=== PATIENT | female | born 1995 | race Caucasian/White ===

== ENCOUNTER 2021-12-23 12:38 | Inpatient (IN) | payer MEDICAID ==
[~2021-12-23] VITALS: Ht 160 cm; Wt 64.4 kg
[2021-12-23] MEDS ORDERED: TERBUTALINE SULFATE 1 MG/ML VIAL SUBCUT ONE (14:15)
[2021-12-23] MEDS ORDERED: LR 1,000 ML IV ONE (14:15)
[2021-12-23] MEDS ORDERED: DINOPROSTONE 10 MG SUPP VG ONE (14:15)
[2021-12-23 14:52] LABS: BASOPHILS % (AUTO) 0.3 % (0.0-2.0); EOSINOPHILS % (AUTO) 0.5 % (0.0-4.0); HEMATOCRIT 29.4 % (36-48); HEMOGLOBIN 9.7 g/dL (12.0-16.0); LYMPHOCYTES # (AUTO) 0.6 K/uL (1.0-5.5); LYMPHOCYTES % (AUTO) 9.9 % (20.5-51.5); MEAN CORPUSCULAR HEMOGLOBIN 25 pg (27-31); MEAN CORPUSCULAR HGB CONC 33 % (32-36); MEAN CORPUSCULAR VOLUME 77 fL (79.0-98.0); MONOCYTES # (AUTO) 0.5 K/uL (0.0-1.0); MONOCYTES % (AUTO) 8.6 % (1.7-9.3); NEUTROPHILS # (AUTO) 5.1 K/uL (1.8-7.7); NEUTROPHILS % (AUTO) 80.7 % (40.0-70.0); PLATELET COUNT (AUTO) 149 K/uL (130-430); RED BLOOD CELL COUNT(AUTO) 3.85 MIL/uL (4.2-6.2); RED CELL DISTRIBUTION WIDTH 16.5 % (9.0-15.0); WHITE BLOOD COUNT (AUTO) 6.3 K/uL (4.8-10.8)
[2021-12-23] MEDS: LR 1,000 ML IV SCH ×2 (18:03→21:10)
[2021-12-24] MEDS ORDERED: MORPHINE SULFATE 10 MG/ML VIAL IVP PRN (01:15)
[2021-12-24] MEDS ORDERED: NALOXONE HCL 0.4 MG/ML AMP (NARCAN) IVP PRN (01:15)
[2021-12-24] MEDS ORDERED: MORPHINE SULFATE 10 MG/ML VIAL ONE (01:40)
[2021-12-24] MEDS: LR 1,000 ML IV SCH (05:17)
[2021-12-24] MEDS ORDERED: TERBUTALINE SULFATE 1 MG/ML VIAL SUBCUT ONE (08:00)
[2021-12-24] MEDS ORDERED: OXYTOCIN/0.9 % SODIUM CHLORIDE 1,000 ML IV SCH ×2 (08:00→16:30)
[2021-12-24] MEDS ORDERED: fentaNYL CITRATE/PF 100 MCG/2 ML AMP ONE (08:01)
[2021-12-24] MEDS ORDERED: ROPIVACAINE HCL/PF 0.2% 200 ML ONE (08:01)
[2021-12-24] MEDS ORDERED: LR 500 ML IV ONE (09:15)
[2021-12-24] MEDS ORDERED: FENT2mCg/mL-ROPIVA0.2%/NS EPID 200 ML EP SCH (09:15)
[2021-12-24] MEDS ORDERED: LIDOCAINE PF 1% 30ML(POUR BTL) INJ ONE (12:16)
[2021-12-24] MEDS ORDERED: LIGHT MINERAL OIL 10 ML VIAL MC ONE (12:16)
[2021-12-24] MEDS ORDERED: NALOXONE HCL 0.4 MG/ML AMP (NARCAN) ONE (12:16)
[2021-12-24] MEDS ORDERED: METHYLERGONOVINE MALEATE 0.2 MG TABLET PO PRN (16:30)
[2021-12-24] MEDS ORDERED: HYDROCORTISONE 0.5% CREAM 28.4 GM CREAM.GM. TP PRN (16:30)
[2021-12-24] MEDS ORDERED: RHO(D) IMMUNE GLOBULIN/MALTOSE 1500 UNITS/1.3 ML (WINHRO) IM PRN (16:30)
[2021-12-24] MEDS ORDERED: DERMOPLAST SPRAY TP PRN (16:30)
[2021-12-24] MEDS ORDERED: WITCH HAZEL LEAF 1 MED.PAD MED.PAD TP PRN (16:30)
[2021-12-24] MEDS ORDERED: OXYTOCIN/0.9 % SODIUM CHLORIDE 1,000 ML IV ONE (16:30)
[2021-12-24] MEDS ORDERED: OXYCODONE/ACETAMINOPHEN 5-325 TABLET PO PRN (16:30)
[2021-12-24] MEDS ORDERED: ANUSOL 1 EA SUPP.RECT (PREPARATION H) RC PRN (16:30)
[2021-12-24] MEDS ORDERED: LANOLIN 7 GM OINT. TP PRN (16:30)
[2021-12-24] MEDS ORDERED: DIPH-TET-PERTUS Vaccine 0.5 ML VIAL (ADACEL) I.M. PRN (16:30)
[2021-12-24] MEDS ORDERED: DOCUSATE SODIUM 100 MG CAPSULE PO ONE (16:45)
[2021-12-24] MEDS: IBUPROFEN 600 MG TABLET PO SCH (18:02)
[2021-12-24] MEDS: OXYCODONE/ACETAMINOPHEN 5-325 TABLET PO PRN (20:56)
[2021-12-24] MEDS ORDERED: SENNOSIDES/DOCUSATE SODIUM 1 TAB TABLET(SENOKOT-S) PO SCH (21:00)
[2021-12-24] MEDS ORDERED: TEMAZEPAM 15 MG CAPSULE PO PRN (21:00)
[2021-12-24] MEDS ORDERED: DOCUSATE SODIUM 100 MG CAPSULE PO SCH (21:00)
[2021-12-25] MEDS: OXYCODONE/ACETAMINOPHEN 5-325 TABLET PO PRN (08:18)
[2021-12-25 08:23] LABS: BASOPHILS % (AUTO) 0.2 % (0.0-2.0); EOSINOPHILS % (AUTO) 0.5 % (0.0-4.0); HEMATOCRIT 26.1 % (36-48); HEMOGLOBIN 8.5 g/dL (12.0-16.0); LYMPHOCYTES # (AUTO) 0.7 K/uL (1.0-5.5); LYMPHOCYTES % (AUTO) 7.1 % (20.5-51.5); MEAN CORPUSCULAR HEMOGLOBIN 25 pg (27-31); MEAN CORPUSCULAR HGB CONC 33 % (32-36); MEAN CORPUSCULAR VOLUME 78 fL (79.0-98.0); MONOCYTES # (AUTO) 0.6 K/uL (0.0-1.0); MONOCYTES % (AUTO) 6.4 % (1.7-9.3); NEUTROPHILS # (AUTO) 8.1 K/uL (1.8-7.7); NEUTROPHILS % (AUTO) 85.8 % (40.0-70.0); PLATELET COUNT (AUTO) 131 K/uL (130-430); RED BLOOD CELL COUNT(AUTO) 3.36 MIL/uL (4.2-6.2); RED CELL DISTRIBUTION WIDTH 16.8 % (9.0-15.0); WHITE BLOOD COUNT (AUTO) 9.4 K/uL (4.8-10.8)
[2021-12-25] MEDS: IBUPROFEN 600 MG TABLET PO SCH ×2 (11:55→17:52)
[2021-12-25] MEDS ORDERED: FERROUS SULFATE 325 MG TABLET.DR PO SCH (21:00)
[2021-12-26] MEDS: IBUPROFEN 600 MG TABLET PO SCH ×2 (00:01→05:54)
== END 2021-12-26 14:54 | disposition home or self-care (01) | DRG 560 ==
LOC: SPU 12:38
PROVIDERS: ADMIT Obstetrics & Gynecology; ATTEND Obstetrics & Gynecology
PROC: 3E0P7VZ Introduction of Hormone into Female Reproductive, Via Natural or Artificial Opening (ICD-10-PCS; 2021-12-23)
PROC: 10E0XZZ Delivery of Products of Conception, External Approach (ICD-10-PCS; principal; 2021-12-24)
PROC: 10907ZC Drainage of Amniotic Fluid, Therapeutic from Products of Conception, Via Natural or Artificial Opening (ICD-10-PCS; 2021-12-24)
PROC: 0KQM0ZZ Repair Perineum Muscle, Open Approach (ICD-10-PCS; 2021-12-24)
PROC: 3E0R3BZ Introduction of Anesthetic Agent into Spinal Canal, Percutaneous Approach (ICD-10-PCS; 2021-12-24)
PROC: 00HU33Z Insertion of Infusion Device into Spinal Canal, Percutaneous Approach (ICD-10-PCS; 2021-12-24)
DX: O77.0 Labor and delivery complicated by meconium in amniotic fluid (principal); Z37.0 Single live birth; O99.344 Other mental disorders complicating childbirth; F32.A Depression, unspecified; F41.9 Anxiety disorder, unspecified; O70.1 Second degree perineal laceration during delivery; Z20.822 Contact with and (suspected) exposure to COVID-19; Z3A.40 40 weeks gestation of pregnancy
CPT/HCPCS: 36415; 76815; 81002; 85025; 86592; 86886; 86900; 86901; J2001; J2270; J2310; J2590; J3010